=== PATIENT | male | born 1950 | race Caucasian/White ===

== ENCOUNTER → 2021-12-23 | Outpatient (CLI) | payer MEDICARE, OTHER ==
[2015-05-02 17:45] VITALS: BP 141/88
[~2021-12-23] MED LIST: ASPI325T8 PO; CARV3.12 PO; METF10007 PO; OMEP20CA5 PO; PRED2.5T PO; SIMV40TA18 PO; TRAZ150T49 PO; WARF7.5T48 PO
--- NOTE | 2021-12-23 16:10 | RAD ---
CT HEAD/BRAIN WO History: Reason: FELL 5 DAYS AGO AND HIT BACK OF HEAD / Spl. Instructions: PT TAKES BLOOD THINNERS / History: Comparison: None. Technique: Noncontrast CT imaging was performed of the head. Exposure: One or more of the following individualized dose reduction techniques were utilized for thi s examination: 1. Automated exposure control 2. Adjustment of the mA and/or kV according to patient size 3. Use of iterative reconstruction technique. Findings: No intracranial hemorrhage. No mass effect. No hydrocephalus. Mild foci of decreased attenuation within the hemispheric white matter, most often due to chronic jose rovascular ischemia. Mild brain parenchymal volume loss. Intracranial atheromatous calcifications. Imaged orbits are unremarkable. Imaged paranasal sinuses and mastoid air cells are clear. No acute ca lvarial fracture. Impression: 1. No acute intracranial abnormality. Electronically signed by: Jann Kent DO (12/23/2021 4:08 PM) [id number]
== END ==
LOC: CT 14:34
PROVIDERS: ATTEND Family Medicine
DX: S09.90XA Unspecified injury of head, initial encounter (principal); W19.XXXA Unspecified fall, initial encounter; Z79.01 Long term (current) use of anticoagulants
CPT/HCPCS: 70450